=== PATIENT | male | born 1985 | race American Indian/Alaskan Native ===

== ENCOUNTER 2018-03-02 08:17 | Emergency (ER) | payer OTHER ==
[2018-03-02 08:22] VITALS: BMI 28.1
[2018-03-02 08:25] VITALS: TEMP 98; O2SAT 99
--- NOTE | 2018-03-02 09:03 | C.PDOC ---
History Of Present Illness 32 yo male come in for evaluation of Right 5th finger injury sustained few hours ago while at work. Pt reports, " heavy box fell down on finger". Pain is localized over Right 5th finger, worse with movement. Otherwise, denies obvious deformity, weakness, sensory or vascular deficits. Ambulate to ED, not in any apparent distress, pain medication offered, refused now. <Rosa Isela Oquendo - Last Filed: 03/02/18 09:00> History Per: Patient <Rosa Isela Oquendo - Last Filed: 03/02/18 09:00> <Kei James - Last Filed: 03/07/18 06:40> Time Seen by Provider: 03/02/18 08:29 Chief Complaint (Nursing): Finger,Hand,&Wrist Past Medical History Reviewed: Historical Data, Nursing Documentation, Vital Signs Vital Signs: Last Vital Signs Temp 98 F 03/02/18 08:22 Pulse 63 03/02/18 08:22 Resp 18 03/02/18 08:22 BP 135/89 03/02/18 08:22 Pulse Ox 99 03/02/18 08:22 - Medical History PMH: No Chronic Diseases Denies: Chronic Kidney Disease Family History: States: No Known Family Hx - Social History Hx Alcohol Use: No Hx Substance Use: Yes (marijuana) - Immunization History Hx Tetanus Toxoid Vaccination: No Hx Influenza Vaccination: No Hx Pneumococcal Vaccination: No <Rosa Isela Oquendo - Last Filed: 03/02/18 09:00> Vital Signs: Last Vital Signs Temp 98 F 03/02/18 09:22 Pulse 66 03/02/18 09:22 Resp 16 03/02/18 09:22 BP 131/85 03/02/18 09:22 Pulse Ox 99 03/02/18 09:27 <Kei James - Last Filed: 03/07/18 06:40> Review Of Systems Except As Marked, All Systems Reviewed And Found Negative. Constitutional: Negative for: Fever, Chills Musculoskeletal: Positive for: Other (Right 5th finger pain) Skin: Negative for: Rash, Bruising Neurological: Negative for: Weakness, Numbness <Rosa Isela Oquendo - Last Filed: 03/02/18 09:00> Physical Exam - Physical Exam Appears: Well, Non-toxic, No Acute Distress Skin: Normal Color, Warm, No Rash, No Ecchymosis Head: Atraumatic, Normacephalic Extremity: Normal ROM (Right hand), Tenderness (mild tenderness over Right 5th PIPJ and Right 5th proximal and mid phalanx. NO edema, no ecchymoses.), No Deformity, No Swelling Neurological/Psych: Oriented x3, Normal Speech, Normal Motor, Normal Sensation, Normal Reflexes <Rosa Isela Oquendo - Last Filed: 03/02/18 09:00> ED Course And Treatment O2 Sat by Pulse Oximetry: 99 - Other Rad Right 5th finger X-Ray: Interpreted by Me, Viewed By Me Interpretation: (-) acute fx or dislocation Progress Note: On re-eval, pt is afebrile, hemodynamiclay stable. non-toxic. Right hand: tenderness over Right 5th finger . NO defomrity, no skin changes, FAROM, no neurovascular deficits. Imaging review (-) acute fx. Finger splint applied to Right 5th finger. Pt advised and ref. to f/u with Hand specialsit in 2-3 days for re-eavl. return if any new changes. <Rosa Isela Oquendo - Last Filed: 03/02/18 09:00> Disposition Counseled Patient/Family Regarding: Studies Performed, Diagnosis, Need For Followup, Rx Given - Disposition Disposition Time: 09:00 <Rosa Isela Oquendo - Last Filed: 03/02/18 09:00> <Kei James - Last Filed: 03/07/18 06:40> - Disposition Referrals: Fito Graves MD [Staff Provider] - Disposition: HOME/ ROUTINE Condition: STABLE Additional Instructions: Finger splint for 1 week take Ibuprofen daily Follow up with Hand specialist in 2-3 days for re-evaluation. Return to ED if any worsening or new changes. 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 <Kei James - Last Filed: 03/07/18 06:40>
[2018-03-02 09:23] VITALS: BP 131/85; PULSE 66; RESP 16
--- NOTE | 2018-03-02 15:05 | RAD ---
Date of service: 03/02/2018 PROCEDURE: Right small finger radiographs. HISTORY: injury COMPARISON: None. TECHNIQUE: AP radiograph of the right hand, as well as spot oblique and lateral images of small finger were obtained. FINDINGS: RIGHT SMALL FINGER: Normal right small finger, without fracture or focal lesion. Remainder of the right hand (as seen on the AP view) grossly unremarkable. JOINTS: Normal. SOFT TISSUES: Normal. OTHER FINDINGS: None. IMPRESSION: Normal right small finger radiographs. If symptoms persist or occult fracture suspected clinically consider repeat radiographs in 7-10 days as most fractures should become radiographically evident in this timeframe.
== END 2018-03-02 09:22 | disposition home or self-care (01) ==
LOC: C.ER 08:17
DX: S69.91XA Unspecified injury of right wrist, hand and finger(s), initial encounter (principal); W20.8XXA Other cause of strike by thrown, projected or falling object, initial encounter; Y99.0 Civilian activity done for income or pay